=== PATIENT | male | born 1990 | race Caucasian/White ===

== ENCOUNTER 2019-07-30 08:56 | Emergency (ER) | payer OTHER ==
[~2019-07-30] VITALS: Ht 182.9 cm; Wt 95.3 kg
[2019-07-30 09:12] VITALS: Ht 182.9 cm; Wt 95.3 kg
[2019-07-30 09:51] LABS: BASOPHIL % 0 % (0-2); PLATELET COUNT 275 x10^3mcL (130-400); RED CELL DISTRIBUTION WIDTH 12.8 % (11.5-14.5)
[2019-07-30 10:01] LABS: CALCIUM 9.5 mg/dL (8.5-10.1); CARBON DIOXIDE 29.7 mmol/L (21-32); CHLORIDE SERUM 101 mmol/L (98-107); CREATININE SERUM 1.3 mg/dL (0.7-1.3); GFR1 > 60 mL/min; GLUCOSE SERUM 119 mg/dL (74-106); POTASSIUM SERUM 3.7 mmol/L (3.5-5.1); SODIUM SERUM 139 mmol/L (136-145)
[2019-07-30 11:08] LABS: AMPHETAMINE QUAL UR POSITIVE (See below)
--- NOTE | 2019-07-30 16:02 | NUR ---
[facility] aware of Pt and will assist with placement. Packet has been faxed to the following facilities: [facility]- not contracted and can not take the Pt
[2019-07-31 01:04] VITALS: BP 124/76
== END 2019-07-31 01:04 | disposition home or self-care (01) ==
LOC: ED 08:56
PROVIDERS: Emergency Medicine
DX: F15.129 Other stimulant abuse with intoxication, unspecified (principal); F29 Unspecified psychosis not due to a substance or known physiological condition; R45.851 Suicidal ideations; R00.0 Tachycardia, unspecified
CPT/HCPCS: G0480; J1630; J2060